=== PATIENT | male | born 1985 | race Caucasian/White ===

== ENCOUNTER 2017-08-29 18:21 | Inpatient (IN) | payer OTHER ==
--- NOTE | 2017-08-29 20:40 | HP ---
COWS - Scale Resting Pulse: 1= [place] 81-100 Sweatin=Flushed/Facial Moisture Restless Observation: 5= Unable to Sit Still Pupil Size: 1= Pupils >than Normal Bone or Joint Aches: 4=Acute Joint/Muscle Pain Runny Nose/ Eye Tearin= Nasal Congestion GI Upset > 30mins: 3= Vomiting/Diarrhea Tremor Observation: 4= Gross Tremor/Twitching Yawning Observation: 1= 1-2x During Session Anxiety or Irritability: 4=Extreme Anxiety Goose Flesh Skin: 0=Smooth Skin COWS Score: 26 CIWA Score - CIWA Score Nausea/Vomitin Muscle Tremors: 4-Moderate,w/Arms Extend Anxiety: 5 Agitation: 5 Paroxysmal Sweats: 3 Orientation: 0-Oriented Tacttile Disturbances: 0-None Auditory Disturbances: 0-None Visual Disturbances: 0-None Headache: 3-Moderate CIWA-Ar Total Score: 23 Admission LOCATED [facility]IN [facility] Chief Complaint: C/O WITHDRAWAL SX'S FROM ALCOHOL AND HEROIN . SEEKING DETOX TXMENT Allergies/Adverse Reactions: Allergies Allergy/AdvReac Type Severity Reaction Status Date / Time Penicillins Allergy Intermediate Hives Verified 12/05/11 23:41 Sulfa (Sulfonamide Allergy Intermediate Hives Verified 12/05/11 23:42 Antibiotics) [Sulfa(Sulfonamide Antibiotics)] History of Present Illness: 32 Y.O. MALE WITH LONG HX/O OPIOID AND ALCOHOL DEPENDENCE HERE FOR DETOX TXMENT. CLIENT REPORTS COMPLETING A 6 DAY DETOX AT [facility] 10 DAYS AGO. HE REPORTS HE HAS SINCE BEEN USING HEROIN AND ALCOHOL SINCE DISCHARGE DUE TO NOT MEETING CRITERIA FOR REHAB SERVICES 2/2 RESTRICITIONS TO A HOSPITAL SETTING. HE IS PRESENTLY IN MODERATE WITHDRAWAL UTOX + FOR OPIATES . WILL ADMIT TO DETOX. CLIENT IS SEEKING REHAB SERVICES POST DETOX. HE IS SELF REFERRED. HE IS PRESENTLY ON [employer]AL PROBATION. REPORTS A CLEAN TIME OF 3 YEARS RELAPSING 6 MONTHS AGO Exam Limitations: No Limitations - Ebola screening Have you traveled outside of the country in the last 21 days: No Have you had contact with anyone from an Ebola affected area: No Have you been sick,other than usual withdrawal symptoms: No Do you have a fever: No - Review of Systems Constitutional: Chills, Loss of Appetite, Malaise, Night Sweats, Changes in sleep, Unexplained wgt Loss EENT: reports: Nose Congestion, Other (GLASSES) Respiratory: reports: No Symptoms reported Cardiac: reports: No Symptoms Reported GI: reports: Nausea, Poor Appetite, Vomiting, Abdominal cramping : reports: No Symptoms Reported Musculoskeletal: reports: Joint Pain Integumentary: reports: No Symptoms Reported Neuro: reports: No Symptoms reported Endocrine: reports: No Symptoms Reported Hematology: reports: No Symptoms Reported Psychiatric: reports: Anxious, Depressed (DENIES SI/HI), other (BIPOLAR) Other Systems: Reviewed and Negative Patient History - Patient Medical History Hx Anemia: No Hx Asthma: No Hx Chronic Obstructive Pulmonary Disease (COPD): No Hx Cancer: No Hx Cardiac Disorders: No Hx Congestive Heart Failure: No Hx Hypertension: No Hx Hypercholesterolemia: No Hx Pacemaker: No HX Cerebrovascular Accident: No Hx Seizures: No Hx Dementia: No Hx Diabetes: No Hx Gastrointestinal Disorders: No Hx Liver Disease: No Hx Genitourinary Disorders: No Hx Sexually Transmitted Disorders: No Hx Renal Disease (ESRD): No Hx Thyroid Disease: No Hx Human Immunodeficiency Virus (HIV): No Hx Hepatitis C: No Hx Depression: Yes (NO MED MGMT) Hx Suicide Attempt: No Hx Bipolar Disorder: Yes ( HALDOL 2.5 MG BID) Hx Schizophrenia: No Other Medical History: INSOMNIA TRAZADONE 200MG Q HS; REMERON 7.5 MG PO QHS - Patient Surgical History Past Surgical History: Yes Hx Neurologic Surgery: No Hx Cataract Extraction: No Hx Cardiac Surgery: No Hx Lung Surgery: No Hx Breast Surgery: No Hx Breast Biopsy: No Hx Abdominal Surgery: No Hx Appendectomy: No Hx Cholecystectomy: No Hx Genitourinary Surgery: No Hx Section: No Hx Orthopedic Surgery: Yes (L HAND FX WITH ORIF AND HARDWARE) Anesthesia Reaction: Yes - PPD History Previous Implant?: Yes Documented Results: Positive w/o proof Implanted On Prior [facility] Admission?: No PPD to be Administered?: No - Smoking Cessation Smoking history: Current every day smoker Aproximately how many cigarettes per day: 20 Cigars Per Day: 0 Hx Chewing Tobacco Use: No Initiated information on smoking cessation: Yes 'Breaking Loose' booklet given: 08/29/17 - Substance & Tx. History Hx Alcohol Use: Yes Hx Substance Use: Yes Substance Use Type: Alcohol, Cocaine, Heroin Hx Substance Use Treatment: Yes ([facility]) - Substances Abused HEROIN Route: Inhalation Frequency: Daily Amount used: 10 BAGS Age of first use: 20 Date of Last Use: 08/28/17 VODKA Route: Oral Frequency: Daily Amount used: 2 750 ML Age of first use: 16 Date of Last Use: 08/29/17 COCAINE Route: Inhalation Frequency: 1-2 times per week Amount used: 1/2 GRAM Age of first use: 20 Date of Last Use: 08/28/17 Family Disease History - Family Disease History Family History: Denies Admission Physical Exam [facility] - Physical General Appearance: Yes: Moderate Distress, Alcohol on Breath, Tremorous, Sweating, Anxious HEENTM: Yes: EOMI, Normocephalic, Normal Voice, YANELY, Pharynx Normal, Nasal Congestion Respiratory: Yes: Chest Non-Tender, Lungs Clear, Normal Breath Sounds, No Respiratory Distress, No Accessory Muscle Use Neck: Yes: No masses,lesions,Nodules, Supple, Trachea in good position Breast: Yes: Breast Exam Deferred Cardiology: Yes: Regular Rhythm, S1, S2, Tachycardia Abdominal: Yes: Normal Bowel Sounds, Non Tender, Flat, Soft Genitourinary: Yes: Within Normal Limits Back: Yes: Normal Inspection Musculoskeletal: Yes: full range of Motion, Gait Steady Extremities: Yes: Normal Capillary Refill, Normal Range of Motion, Non-Tender, Tremors Neurological: Yes: health information internship II-XII NML intact Integumentary: Yes: Warm, Diaphoresis, Moist, Other (FLUSHED FACE) Lymphatic: Yes: Within Normal Limits - Diagnostic (1) Opioid dependence with withdrawal Current Visit: Yes Status: Chronic (2) Alcohol dependence with uncomplicated withdrawal Current Visit: Yes Status: Chronic (3) Cocaine dependence, uncomplicated Current Visit: Yes Status: Chronic (4) Nicotine dependence Current Visit: Yes Status: Chronic Qualifiers: Nicotine product type: cigarettes Substance use status: uncomplicated Qualified Code(s): F17.210 - Nicotine dependence, cigarettes, uncomplicated (5) History of positive PPD Current Visit: Yes Status: Chronic Cleared for Admission [facility] - Detox or Rehab [facility] Level of Care: Medically Managed Detox Regimen/Protocol: Methadone/Librium [facility] Breath Alcohol Content Breath Alcohol Content: 0
[2017-08-29] MEDS ORDERED: MAG HYDROX/AL HYDROX/SIMETH 30 ML UNIT-DOSE CUP PO PRN (20:55)
[2017-08-29] MEDS ORDERED: P-EPHED 60MG/TRIPROLIDI 2.5MG TABLET PO PRN (20:55)
[2017-08-29] MEDS ORDERED: LOPERAMIDE HCL 2 MG CAPSULE PO PRN (20:55)
[2017-08-29] MEDS ORDERED: MAGNESIUM CITRATE 300 ML BOTTLE PO PRN (20:55)
[2017-08-29] MEDS ORDERED: MENTHOL/PHENOL 1 EACH UD MM PRN (20:55)
[2017-08-29] MEDS ORDERED: MAGNESIUM HYDROX 2400MG/30ML ORAL SUSPENSION 30 ML CUP PO PRN (20:55)
[2017-08-29] MEDS ORDERED: METHADONE HCL 10 MG TABLET (FOR DETOX USE ONLY) PO ONE ×2 (20:55→23:00)
[2017-08-29] MEDS ORDERED: guaiFENesin/D-METHORPHAN HB 10 ML UNIT-DOSE CUPS PO PRN (20:55)
[2017-08-29 21:31] VITALS: BMI 28.8
[2017-08-29] MEDS ORDERED: METHADONE HCL 10 MG TABLET (FOR DETOX USE ONLY) ONE (23:23)
[2017-08-29] MEDS: chlordiazePOXIDE HCL 25 MG CAPSULE PO SCH (23:24)
[2017-08-29] MEDS: THIAMINE HCL 100 MG TABLET (FP) PO SCH (23:24)
[2017-08-29] MEDS: NICOTINE POLACRILEX 4 MG GUM BC PRN (23:26)
[2017-08-29 23:40] LABS: URINE APPEARANCE CLEAR; URINE BILIRUBIN NEGATIVE (NEGATIVE); URINE BLOOD NEGATIVE (NEGATIVE); URINE COLOR LTYELLOW; URINE GLUCOSE (UA) NEGATIVE (NEGATIVE); URINE KETONE NEGATIVE (NEGATIVE); URINE LEUK ESTERASE NEGATIVE (NEGATIVE); URINE NITRITE NEGATIVE (NEGATIVE); URINE PROTEIN NEGATIVE (NEGATIVE)
[2017-08-30] MEDS: chlordiazePOXIDE HCL 25 MG CAPSULE PO PRN ×2 (01:04→12:54)
[2017-08-30] MEDS: IBUPROFEN 400 MG TABLET (FP) PO PRN ×3 (01:04→19:19)
[2017-08-30] MEDS: chlordiazePOXIDE HCL 25 MG CAPSULE PO SCH ×4 (05:52→22:16)
--- NOTE | 2017-08-30 08:48 | EKG ---
Test Reason : Blood Pressure : / mmHG Vent. Rate : 064 BPM Atrial Rate : 064 BPM P-R Int : 130 ms QRS Dur : 092 ms QT Int : 398 ms P-R-T Axes : 033 048 037 degrees QTc Int : 410 ms BASELINE ARTIFACT SINUS RHYTHM OTHERWISE NORMAL ECG NO PREVIOUS ECGS AVAILABLE Confirmed by Jah Gramajo ([id number]) on 08/30/2017 8:48:22 AM Referred By: Maicol Ramos Confirmed By:Jah Gramaoj
[2017-08-30] MEDS ORDERED: METHADONE HCL 10 MG TABLET (FOR DETOX USE ONLY) PO SCH (10:00)
[2017-08-30 10:20] LABS: MCH 30.5 pg (25.7-33.7); MCHC 34.2 g/dl (32.0-35.9); MEAN CELL VOLUME 89.1 fl (80-96); MEAN PLT VOLUME 7.6 fl (7.5-11.1); PLATELET COUNT 251 K/MM3 (134-434); RBC 4.27 M/mm3 (4.00-5.60)
[2017-08-30 10:28] LABS: ALBUMIN 3.5 g/dl (3.4-5.0); ANION GAP 7 (8-16); BLOOD UREA NITROGEN 11 mg/dL (7-18); CALCIUM 8.7 mg/dL (8.5-10.1); CHLORIDE 104 mmol/L (98-107); CO2 29 mmol/L (21-32); GLUCOSE,RANDOM 75 mg/dL (74-106); POTASSIUM 3.8 mmol/L (3.5-5.1); SGOT/AST 11 U/L (15-37); SGPT/ALT 17 U/L (12-78); SODIUM 140 mmol/L (136-145)
[2017-08-30 10:29] LABS: ALK PHOS 43 U/L (45-117); BILIRUBIN,TOTAL 0.6 mg/dL (0.2-1.0); TOT PROT 6.2 g/dl (6.4-8.2)
--- NOTE | 2017-08-30 10:37 | CONSULT ---
[facility] Psychiatric Consult - Data Date of interview: 08/30/17 Admission source: [facility] Identifying data: This is 32 years old male with no psychiatric hospitalization history intoxicated with: Cocaine, Alcohol Opiuoids, Xanax Substance Abuse History: - Smoking Cessation. Smoking history: Current every day smoker. Aproximately how many cigarettes per day: 20. Cigars Per Day: 0. Hx Chewing Tobacco Use: No. Initiated information on smoking cessation: Yes. ' Breaking Loose' booklet given: 08/29/17. - Substance & Tx. History. Hx Alcohol Use: Yes. Hx Substance Use: Yes. Substance Use Type: Alcohol, Cocaine , Heroin. Hx Substance Use Treatment: Yes ([facility] - Substances Abused. HEROIN. Route: Inhalation. Frequency: Daily. Amount used: 10 BAGS. Age of first use: 20. Date of Last Use: 08/28/17. VODKA. Route: Oral. Frequency: Daily. Amount used: 2 750 ML. Age of first use: 16. Date of Last Use: 08/29/17. COCAINE. Route: Inhalation. Frequency: 1-2 times per week. Amount used: 1/2 GRAM. Age of first use: 20. Date of Last Use : 08/28/17 Medical History: PPD + history Psychiatric History: Patoent reports history of Bipolar Diasorder with no psychiatric hospitalization history, reports taking prior to admission: Remeron 7.5mg po qhs. TYrazodone 200mg po qhs. As per julianne patipayamnt has been in addition on:'. Haldol 2.5mg po bid. Cogentin 1mg poqd. Refusing to start above medications Physical/Sexual Abuse/Trauma History: Denies Additional Comment: Remeron 7.5mg po qhs. TYrazodone 200mg po qhs Mental Status Exam - Mental Status Exam Alert and Oriented to: Person Cognitive Function: Fair Patient Appearance: Unkempt Mood: Sad Affect: Flat Patient Behavior: Sedated Speech Pattern: Delayed Voice Loudness: Mildly Soft/Quiet Thought Process: Goal Oriented Thought Disorder: Being Controlled Hallucinations: Denies Suicidal Ideation: Denies Homicidal Ideation: Denies Insight/Judgement: Fair Sleep: Difficulty falling asleep Appetite: Weight loss Muscle strength/Tone: Mild Hypotonicity Gait/Station: Shuffling Additional Comments: Remeron 7.5mg po qhs. TYrazodone 200mg po qhs Psychiatric Findings - Problem List ([place] 1, 2,3) (1) Bipolar disorder Current Visit: Yes Status: Suspected (2) Alcohol dependence with uncomplicated withdrawal Current Visit: Yes Status: Chronic (3) Cocaine dependence, uncomplicated Current Visit: Yes Status: Chronic (4) Nicotine dependence Current Visit: Yes Status: Chronic Qualifiers: Nicotine product type: cigarettes Substance use status: uncomplicated Qualified Code(s): F17.210 - Nicotine dependence, cigarettes, uncomplicated (5) Opioid dependence with withdrawal Current Visit: Yes Status: Chronic - Initial Treatment Plan Initial Treatment Plan: Remeron 7.5mg po qhs. TYrazodone 200mg po qhs
[2017-08-30] MEDS: PRENATAL VITAMINS W/ FOLIC ACID TABLET (FP) PO SCH (11:08)
[2017-08-30] MEDS: NICOTINE POLACRILEX 4 MG GUM BC PRN ×3 (11:10→22:16)
--- NOTE | 2017-08-30 14:41 | PN ---
S COWS - Scale Resting Pulse: 1= [place] 81-100 Sweatin= Chills/Flushing Restless Observation: 3= Extraneous Movement Pupil Size: 1= Pupils >than Normal Bone or Joint Aches: 2= Severe Diffuse Aches Runny Nose/ Eye Tearin= Nasal Congestion GI Upset > 30mins: 1= Stomach Cramp Tremor Observation of Outstretched Hands: 2= Slight Tremor Visible Yawning Observation: 0= None Anxiety or Irritability: 2=Irritable/Anxious Goose Flesh Skin: 0=Smooth Skin COWS Score: 14 [facility] Progress Note (SOAP) Objective: 08/30/17 14:40 Vital Signs - 24 hr 08/29/17 08/29/17 08/30/17 19:06 23:12 06:26 Temperature 99.4 F 98.1 F 97.7 F Pulse Rate 89 71 58 L Respiratory 19 18 16 Rate Blood Pressure 104/72 127/91 104/58 08/30/17 08/30/17 09:22 14:36 Temperature 97.2 F L 98.1 F Pulse Rate 58 L 65 Respiratory 18 20 Rate Blood Pressure 109/66 130/67 Laboratory Tests 08/29/17 08/30/17 08/30/17 23:20 07:00 07:00 WBC 6.0 D RBC 4.27 Hgb 13.0 Hct 38.0 MCV 89.1 MCH 30.5 MCHC 34.2 RDW 13.0 Plt Count 251 MPV 7.6 Sodium 140 Potassium 3.8 Chloride 104 Carbon Dioxide 29 Anion Gap 7 L BUN 11 Creatinine 1.0 Creat Clearance w eGFR > 60 Random Glucose 75 Calcium 8.7 Total Bilirubin 0.6 D AST 11 L D ALT 17 D Alkaline Phosphatase 43 L Total Protein 6.2 L Albumin 3.5 Urine Color Ltyellow Urine Appearance Clear Urine pH 6.0 Ur Specific [place] 1.013 Urine Protein Negative Urine Glucose (UA) Negative Urine Ketones Negative Urine Blood Negative Urine Nitrite Negative Urine Bilirubin Negative Urine Urobilinogen 2.0 Ur Leukocyte Esterase Negative RPR Titer 08/30/17 07:00 WBC RBC Hgb Hct MCV MCH MCHC RDW Plt Count MPV Sodium Potassium Chloride Carbon Dioxide Anion Gap BUN Creatinine Creat Clearance w eGFR Random Glucose Calcium Total Bilirubin AST ALT Alkaline Phosphatase Total Protein Albumin Urine Color Urine Appearance Urine pH Ur Specific [place] Urine Protein Urine Glucose (UA) Urine Ketones Urine Blood Urine Nitrite Urine Bilirubin Urine Urobilinogen Ur Leukocyte Esterase RPR Titer Nonreactive remainder pending Assessment: 08/30/17 14:41 opiate withdrawal Plan: cont protocol
[2017-08-30] MEDS: THIAMINE HCL 100 MG TABLET (FP) PO SCH (22:15)
[2017-08-30] MEDS: ACETAMINOPHEN 325 MG TABLET (FP) PO PRN (22:16)
[2017-08-31] MEDS: chlordiazePOXIDE HCL 25 MG CAPSULE PO SCH ×3 (05:58→17:47)
[2017-08-31] MEDS: NICOTINE POLACRILEX 4 MG GUM BC PRN ×2 (05:59→17:47)
[2017-08-31] MEDS: PRENATAL VITAMINS W/ FOLIC ACID TABLET (FP) PO SCH (11:02)
[2017-08-31] MEDS: METHADONE HCL 5 MG TABLET (FOR DETOX USE ONLY) PO SCH (11:03)
--- NOTE | 2017-08-31 12:03 | PN ---
S COWS - Scale Resting Pulse: 0= [place] 80 or Below Sweatin= Chills/Flushing Restless Observation: 1= Difficult to Sit Still Pupil Size: 1= Pupils >than Normal Bone or Joint Aches: 2= Severe Diffuse Aches Runny Nose/ Eye Tearin= Nasal Congestion GI Upset > 30mins: 2= Nausea/Diarrhea Tremor Observation of Outstretched Hands: 2= Slight Tremor Visible Yawning Observation: 0= None Anxiety or Irritability: 2=Irritable/Anxious Goose Flesh Skin: 0=Smooth Skin COWS Score: 12 [facility] Progress Note (SOAP) Objective: 08/31/17 12:02 Laboratory Tests 08/29/17 08/29/17 08/30/17 07:00 23:20 07:00 WBC 6.0 D RBC 4.27 Hgb 13.0 Hct 38.0 MCV 89.1 MCH 30.5 MCHC 34.2 RDW 13.0 Plt Count 251 MPV 7.6 Sodium Potassium Chloride Carbon Dioxide Anion Gap BUN Creatinine Creat Clearance w eGFR Random Glucose Calcium Total Bilirubin AST ALT Alkaline Phosphatase Total Protein Albumin Urine Color Ltyellow Urine Appearance Clear Urine pH 6.0 Ur Specific [place] 1.013 Urine Protein Negative Urine Glucose (UA) Negative Urine Ketones Negative Urine Blood Negative Urine Nitrite Negative Urine Bilirubin Negative Urine Urobilinogen 2.0 Ur Leukocyte Esterase Negative RPR Titer Hepatitis C Antibody <0.1 08/30/17 08/30/17 07:00 07:00 WBC RBC Hgb Hct MCV MCH MCHC RDW Plt Count MPV Sodium 140 Potassium 3.8 Chloride 104 Carbon Dioxide 29 Anion Gap 7 L BUN 11 Creatinine 1.0 Creat Clearance w eGFR > 60 Random Glucose 75 Calcium 8.7 Total Bilirubin 0.6 D AST 11 L D ALT 17 D Alkaline Phosphatase 43 L Total Protein 6.2 L Albumin 3.5 Urine Color Urine Appearance Urine pH Ur Specific [place] Urine Protein Urine Glucose (UA) Urine Ketones Urine Blood Urine Nitrite Urine Bilirubin Urine Urobilinogen Ur Leukocyte Esterase RPR Titer Nonreactive Hepatitis C Antibody Vital Signs - 24 hr 08/30/17 08/30/17 08/30/17 14:36 17:59 23:03 Temperature 98.1 F 97.7 F 98.2 F Pulse Rate 65 54 L 58 L Respiratory 20 18 18 Rate Blood Pressure 130/67 100/61 131/72 08/31/17 08/31/17 08/31/17 00:30 03:30 06:00 Temperature 97.7 F Pulse Rate 54 L Respiratory 18 18 18 Rate Blood Pressure 129/69 08/31/17 09:32 Temperature 98.2 F Pulse Rate 60 Respiratory 16 Rate Blood Pressure 126/82 Assessment: 08/31/17 12:03 WITHDRAWAL Plan: CONTINUE DETOX PROTOCOL
[2017-08-31] MEDS: chlordiazePOXIDE HCL 25 MG CAPSULE PO PRN (13:45)
[2017-08-31] MEDS: IBUPROFEN 400 MG TABLET (FP) PO PRN (17:45)
--- NOTE | 2017-08-31 18:06 | PN ---
[facility] Progress Note Note: Psychiatric nurse practitioner: Research Consultant informed by RN of patient requesting his evening medications. Psychiatric consultation responded by Dr. Richter on 08/30/2017. Dr. Richter's note appreciated and acknowledged. Research Consultant to order patient's evening medications of Trazodone 150mg and Mirtzapine 7.5mg . Will continue to monitor.
[2017-08-31] MEDS: traZODone HCL 50 MG TABLET (FP) PO SCH (22:11)
[2017-08-31] MEDS: chlordiazePOXIDE 5 MG CAPSULE PO SCH (22:12)
[2017-08-31] MEDS: THIAMINE HCL 100 MG TABLET (FP) PO SCH (22:12)
[2017-08-31] MEDS: ACETAMINOPHEN 325 MG TABLET (FP) PO PRN (22:12)
[2017-08-31] MEDS: MIRTAZAPINE 15 MG TABLET (FP) PO SCH (22:15)
[2017-08-31] MEDS ORDERED: ACETAMINOPHEN/CAFFEINE/BUTALBITAL 1 TAB PO ONE (23:15)
[2017-09-01] MEDS: chlordiazePOXIDE 5 MG CAPSULE PO SCH ×3 (05:52→17:52)
[2017-09-01] MEDS: PRENATAL VITAMINS W/ FOLIC ACID TABLET (FP) PO SCH (10:58)
[2017-09-01] MEDS: METHADONE HCL 5 MG TABLET (FOR DETOX USE ONLY) PO SCH (10:59)
[2017-09-01] MEDS: IBUPROFEN 400 MG TABLET (FP) PO PRN ×2 (11:00→17:55)
[2017-09-01] MEDS: NICOTINE POLACRILEX 4 MG GUM BC PRN ×3 (11:00→23:13)
[2017-09-01] MEDS: chlordiazePOXIDE HCL 25 MG CAPSULE PO PRN (15:03)
--- NOTE | 2017-09-01 15:31 | PN ---
[facility] Progress Note (SOAP) Subjective: IS, headache , ,jt pains Objective: 09/01/17 15:29 Vital Signs Temperature 96.8 F L 09/01/17 13:16 Pulse Rate 54 L 09/01/17 13:16 Respiratory Rate 18 09/01/17 13:16 Blood Pressure 108/75 09/01/17 13:16 O2 Sat by Pulse Oximetry (%) pt aox3 in nad ambulating Assessment: 09/01/17 15:30 withdrawal sx's Plan: cont. detox increase fluids naprosyn 500mg bid
[2017-09-01] MEDS: traZODone HCL 50 MG TABLET (FP) PO SCH (22:11)
[2017-09-01] MEDS: THIAMINE HCL 100 MG TABLET (FP) PO SCH (22:11)
[2017-09-01] MEDS: NAPROXEN 500 MG TABLET (FP) PO SCH (22:12)
[2017-09-01] MEDS: MIRTAZAPINE 15 MG TABLET (FP) PO SCH (22:12)
[2017-09-01] MEDS: chlordiazePOXIDE HCL 10 MG CAPSULE PO SCH (22:12)
[2017-09-02] MEDS: chlordiazePOXIDE HCL 10 MG CAPSULE PO SCH ×3 (05:33→18:04)
[2017-09-02] MEDS ORDERED: METHADONE HCL 10 MG TABLET (FOR DETOX USE ONLY) PO SCH (10:00)
[2017-09-02] MEDS: PRENATAL VITAMINS W/ FOLIC ACID TABLET (FP) PO SCH (10:52)
[2017-09-02] MEDS: NAPROXEN 500 MG TABLET (FP) PO SCH ×2 (10:52→22:34)
[2017-09-02] MEDS: NICOTINE POLACRILEX 4 MG GUM BC PRN ×2 (10:54→18:05)
--- NOTE | 2017-09-02 13:05 | PN ---
[facility] Progress Note (SOAP) Subjective: general body ache joints ache mild tremor sleep better alert oriented x 3 Objective: 09/02/17 13:05 Vital Signs Temperature 97.7 F 09/02/17 09:41 Pulse Rate 64 09/02/17 09:41 Respiratory Rate 20 09/02/17 09:41 Blood Pressure 120/64 09/02/17 09:41 O2 Sat by Pulse Oximetry (%) Laboratory Last Values WBC 6.0 K/mm3 (4.0-10.0) D 08/30/17 07:00 RBC 4.27 M/mm3 (4.00-5.60) 08/30/17 07:00 Hgb 13.0 GM/dL (11.7-16.9) 08/30/17 07:00 Hct 38.0 % (35.4-49) 08/30/17 07:00 MCV 89.1 fl (80-96) 08/30/17 07:00 MCH 30.5 pg (25.7-33.7) 08/30/17 07:00 MCHC 34.2 g/dl (32.0-35.9) 08/30/17 07:00 RDW 13.0 % (11.9-15.9) 08/30/17 07:00 Plt Count 251 K/MM3 (134-434) 08/30/17 07:00 MPV 7.6 fl (7.5-11.1) 08/30/17 07:00 Sodium 140 mmol/L (136-145) 08/30/17 07:00 Potassium 3.8 mmol/L (3.5-5.1) 08/30/17 07:00 Chloride 104 mmol/L (98-107) 08/30/17 07:00 Carbon Dioxide 29 mmol/L (21-32) 08/30/17 07:00 Anion Gap 7 (8-16) L 08/30/17 07:00 BUN 11 mg/dL (7-18) 08/30/17 07:00 Creatinine 1.0 mg/dL (0.7-1.3) 08/30/17 07:00 Creat Clearance w eGFR > 60 (>60) 08/30/17 07:00 Random Glucose 75 mg/dL (74-106) 08/30/17 07:00 Calcium 8.7 mg/dL (8.5-10.1) 08/30/17 07:00 Total Bilirubin 0.6 mg/dL (0.2-1.0) D 08/30/17 07:00 AST 11 U/L (15-37) L D 08/30/17 07:00 ALT 17 U/L (12-78) D 08/30/17 07:00 Alkaline Phosphatase 43 U/L (45-117) L 08/30/17 07:00 Total Protein 6.2 g/dl (6.4-8.2) L 08/30/17 07:00 Albumin 3.5 g/dl (3.4-5.0) 08/30/17 07:00 Urine Color Ltyellow 08/29/17 23:20 Urine Appearance Clear 08/29/17 23:20 Urine pH 6.0 (5.0-8.0) 08/29/17 23:20 Ur Specific [place] 1.013 (1.001-1.035) 08/29/17 23:20 Urine Protein Negative (NEGATIVE) 08/29/17 23:20 Urine Glucose (UA) Negative (NEGATIVE) 08/29/17 23:20 Urine Ketones Negative (NEGATIVE) 08/29/17 23:20 Urine Blood Negative (NEGATIVE) 08/29/17 23:20 Urine Nitrite Negative (NEGATIVE) 08/29/17 23:20 Urine Bilirubin Negative (NEGATIVE) 08/29/17 23:20 Urine Urobilinogen 2.0 mg/dL (0.2-1.0) 08/29/17 23:20 Ur Leukocyte Esterase Negative (NEGATIVE) 08/29/17 23:20 RPR Titer Nonreactive (NONREACTIVE) 08/30/17 07:00 Hepatitis C Antibody <0.1 s/co ratio (0.0-0.9) 08/29/17 07:00 lab noted Assessment: 09/02/17 13:06 withdrawal sx Plan: continue detox
[2017-09-02] MEDS: traZODone HCL 50 MG TABLET (FP) PO SCH (22:34)
[2017-09-02] MEDS: THIAMINE HCL 100 MG TABLET (FP) PO SCH (22:34)
[2017-09-02] MEDS: MIRTAZAPINE 15 MG TABLET (FP) PO SCH (22:34)
[2017-09-03] MEDS ORDERED: METHADONE HCL 5 MG TABLET (FOR DETOX USE ONLY) PO SCH (06:00)
[2017-09-03 07:09] VITALS: TEMP 97.7
--- NOTE | 2017-09-03 08:24 | DS ---
[facility] Detox Discharge Summary Admission Date: 08/29/17 Discharge Date: 09/03/17 - History Present History: Alcohol Dependence, Cocaine Dependence, Opioid Dependence Additional Comments: CXR neg for active tb Pertinent Past History: anxiety, depression and insomnia nicotine dependence, PPD+ - Physical Exam Results Vital Signs: Vital Signs Temperature 97.7 F 09/03/17 07:07 Pulse Rate 51 L 09/03/17 07:07 Respiratory Rate 16 09/03/17 07:07 Blood Pressure 109/61 09/03/17 07:07 O2 Sat by Pulse Oximetry (%) Laboratory Tests 08/29/17 08/29/17 08/30/17 07:00 23:20 07:00 WBC 6.0 D RBC 4.27 Hgb 13.0 Hct 38.0 MCV 89.1 MCH 30.5 MCHC 34.2 RDW 13.0 Plt Count 251 MPV 7.6 Sodium Potassium Chloride Carbon Dioxide Anion Gap BUN Creatinine Creat Clearance w eGFR Random Glucose Calcium Total Bilirubin AST ALT Alkaline Phosphatase Total Protein Albumin Urine Color Ltyellow Urine Appearance Clear Urine pH 6.0 Ur Specific [place] 1.013 Urine Protein Negative Urine Glucose (UA) Negative Urine Ketones Negative Urine Blood Negative Urine Nitrite Negative Urine Bilirubin Negative Urine Urobilinogen 2.0 Ur Leukocyte Esterase Negative RPR Titer Hepatitis C Antibody <0.1 08/30/17 08/30/17 07:00 07:00 WBC RBC Hgb Hct MCV MCH MCHC RDW Plt Count MPV Sodium 140 Potassium 3.8 Chloride 104 Carbon Dioxide 29 Anion Gap 7 L BUN 11 Creatinine 1.0 Creat Clearance w eGFR > 60 Random Glucose 75 Calcium 8.7 Total Bilirubin 0.6 D AST 11 L D ALT 17 D Alkaline Phosphatase 43 L Total Protein 6.2 L Albumin 3.5 Urine Color Urine Appearance Urine pH Ur Specific [place] Urine Protein Urine Glucose (UA) Urine Ketones Urine Blood Urine Nitrite Urine Bilirubin Urine Urobilinogen Ur Leukocyte Esterase RPR Titer Nonreactive Hepatitis C Antibody Pertinent Admission Physical Exam Findings: withdrawal symptoms - Treatment Hospital Course: Detox Protocol Followed, Detoxed Safely, Responded well, Discharged Condition Good, Rehab Referral Accepted Patient has Accepted a Rehab Referral to: Yes - Medication Discharge Medications: Ambulatory Orders Benztropine Mesylate [Cogentin -] 1 mg PO DAILY 08/29/17 Haloperidol [Haldol -] 2.5 mg PO BID 08/29/17 Mirtazapine 7.5 mg PO HS 08/29/17 Trazodone HCl 200 mg PO HS 08/29/17 - Diagnosis (1) Opioid dependence with withdrawal Current Visit: Yes Status: Chronic (2) Alcohol dependence with uncomplicated withdrawal Current Visit: Yes Status: Chronic (3) Cocaine dependence, uncomplicated Current Visit: Yes Status: Chronic (4) Nicotine dependence Current Visit: Yes Status: Chronic Qualifiers: Nicotine product type: cigarettes Substance use status: uncomplicated Qualified Code(s): F17.210 - Nicotine dependence, cigarettes, uncomplicated (5) History of positive PPD Current Visit: Yes Status: Chronic (6) Bipolar disorder Current Visit: Yes Status: Suspected - AMA Did Patient Leave Against Medical Advice: No
[2017-09-03 09:34] VITALS: BP 136/64; PULSE 54
[2017-09-03] MEDS: NAPROXEN 500 MG TABLET (FP) PO SCH (10:05)
[2017-09-03] MEDS: PRENATAL VITAMINS W/ FOLIC ACID TABLET (FP) PO SCH (10:05)
[2017-09-03] MEDS: NICOTINE POLACRILEX 4 MG GUM BC PRN (10:06)
== END 2017-09-03 13:58 | disposition other institution (70) | DRG 773 ==
LOC: YASAS 18:21 → Y6N 20:56
PROVIDERS: ADMIT Internal Medicine; ATTEND Internal Medicine
PROC: HZ2ZZZZ Detoxification Services for Substance Abuse Treatment (ICD-10-PCS; principal; 2017-08-29)
DX: F11.23 Opioid dependence with withdrawal (principal); F10.230 Alcohol dependence with withdrawal, uncomplicated; F14.20 Cocaine dependence, uncomplicated; F17.210 Nicotine dependence, cigarettes, uncomplicated; F41.8 Other specified anxiety disorders; F31.9 Bipolar disorder, unspecified; G47.00 Insomnia, unspecified; R76.11 Nonspecific reaction to tuberculin skin test without active tuberculosis
CPT/HCPCS: 36415; 71046-TC; 80053; 81003; 85027; 86593; 86803; 93005; 93010

== ENCOUNTER 2017-09-03 14:23 | Inpatient (IN) | payer OTHER ==
[2017-09-03 15:35] VITALS: BMI 29.4
[2017-09-03] MEDS ORDERED: guaiFENesin/D-METHORPHAN HB 10 ML UNIT-DOSE CUPS PO PRN (16:15)
[2017-09-03] MEDS ORDERED: MAGNESIUM CITRATE 300 ML BOTTLE PO PRN (16:15)
[2017-09-03] MEDS ORDERED: MAGNESIUM HYDROX 2400MG/30ML ORAL SUSPENSION 30 ML CUP PO PRN (16:15)
[2017-09-03] MEDS ORDERED: MAG HYDROX/AL HYDROX/SIMETH 30 ML UNIT-DOSE CUP PO PRN (16:15)
[2017-09-03] MEDS ORDERED: hydrOXYzine PAMOATE 50 MG CAPSULE (FP) PO PRN (16:15)
[2017-09-03] MEDS ORDERED: MENTHOL/PHENOL 1 EACH UD MM PRN (16:15)
[2017-09-03] MEDS ORDERED: LOPERAMIDE HCL 2 MG CAPSULE PO PRN (16:15)
--- NOTE | 2017-09-03 16:15 | HP ---
[facility] Rehab Assess/Revision - Admission History Admitted to Rehab from: [facility] Date of Admission to Rehab: 09/03/17 - Vital signs Vital Signs: Vital Signs Period Temp Pulse Resp BP Sys/Tello Pulse Ox Last 24 Hr 98.6 F 62 20 119/76 - Findings Detox History & Physical reviewed: Yes Concur with findings: Yes Inpatient Rehab Admission - Initial Determination Are CD services needed?: Yes Free of communicable disease: Yes Not in need of hospitalization: Yes - Rehab Admission Criteria Lacks judgement: Yes Patient is meeting Inpatient Rehab admission criteria:: Yes
[2017-09-03] MEDS: NICOTINE POLACRILEX 2 MG GUM BUC PRN ×2 (17:26→21:16)
[2017-09-03] MEDS: ACETAMINOPHEN 325 MG TABLET (FP) PO PRN (17:29)
[2017-09-03] MEDS: traZODone HCL 100 MG TABLET (FP) PO SCH (21:15)
[2017-09-03] MEDS: HALOPERIDOL 5 MG TABLET (FP) PO SCH (21:16)
[2017-09-03] MEDS: MIRTAZAPINE 15 MG TABLET (FP) PO SCH (21:16)
[2017-09-03] MEDS: THIAMINE HCL 100 MG TABLET (FP) PO SCH (21:16)
[2017-09-03] MEDS ORDERED: HALOPERIDOL PO SCH (22:00)
[2017-09-04] MEDS: NICOTINE POLACRILEX 2 MG GUM BUC PRN ×4 (08:18→21:35)
[2017-09-04] MEDS: NICOTINE 14 MG/24 HOURS TOPICAL PATCH TD SCH (09:49)
[2017-09-04] MEDS: HALOPERIDOL 5 MG TABLET (FP) PO SCH ×2 (09:49→22:35)
[2017-09-04] MEDS: BENZTROPINE MESYLATE 1 MG TABLET (FP) PO SCH (09:49)
[2017-09-04] MEDS: PRENATAL VITAMINS W/ FOLIC ACID TABLET (FP) PO SCH (09:49)
[2017-09-04] MEDS: traZODone HCL 100 MG TABLET (FP) PO SCH (21:33)
[2017-09-04] MEDS: THIAMINE HCL 100 MG TABLET (FP) PO SCH (21:34)
[2017-09-04] MEDS: IBUPROFEN 400 MG TABLET (FP) PO PRN (21:34)
[2017-09-04] MEDS: MIRTAZAPINE 15 MG TABLET (FP) PO SCH (21:34)
[2017-09-05] MEDS: PRENATAL VITAMINS W/ FOLIC ACID TABLET (FP) PO SCH (09:06)
[2017-09-05] MEDS: NICOTINE 14 MG/24 HOURS TOPICAL PATCH TD SCH (09:06)
[2017-09-05] MEDS: NICOTINE POLACRILEX 2 MG GUM BUC PRN ×3 (09:06→15:11)
[2017-09-05] MEDS: BENZTROPINE MESYLATE 1 MG TABLET (FP) PO SCH (09:07)
[2017-09-05] MEDS: HALOPERIDOL 5 MG TABLET (FP) PO SCH (09:08)
[2017-09-05] MEDS: IBUPROFEN 400 MG TABLET (FP) PO PRN (11:40)
[2017-09-05] MEDS: ACETAMINOPHEN 325 MG TABLET (FP) PO PRN ×2 (13:34→19:57)
[2017-09-05] MEDS ORDERED: GABAPENTIN 300 MG CAPSULE (FP) PO SCH (15:15)
[2017-09-05] MEDS ORDERED: SUMAtriptan SUCCINATE 50 MG TABLET PO ONE (17:15)
[2017-09-05] MEDS: THIAMINE HCL 100 MG TABLET (FP) PO SCH (21:25)
[2017-09-05] MEDS: traZODone HCL 100 MG TABLET (FP) PO SCH (21:25)
[2017-09-05] MEDS: MIRTAZAPINE 15 MG TABLET (FP) PO SCH (21:26)
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
[2017-09-06] MEDS: NICOTINE POLACRILEX 2 MG GUM BUC PRN ×3 (08:17→14:16)
[2017-09-06] MEDS: PRENATAL VITAMINS W/ FOLIC ACID TABLET (FP) PO SCH (10:45)
[2017-09-06] MEDS: NICOTINE 14 MG/24 HOURS TOPICAL PATCH TD SCH (10:45)
[2017-09-06] MEDS: ACETAMINOPHEN 325 MG TABLET (FP) PO PRN ×2 (14:13→18:20)
[2017-09-06] MEDS ORDERED: SUMAtriptan SUCCINATE 50 MG TABLET PO PRN (14:45)
--- NOTE | 2017-09-06 15:20 | PN ---
S Progress Note (SOAP) Subjective: c/o migraine wants higher dose of nicotine gum and patch Objective: 09/06/17 15:19 Vital Signs - 24 hr 09/06/17 09/06/17 09/06/17 00:30 03:30 07:09 Temperature 97.2 F L Pulse Rate 78 Respiratory 20 18 18 Rate Blood Pressure 102/56 labs reveiwed Assessment: 09/06/17 15:19 nicotein gum 4mg, 21mg path, restart [id number] tititrate slowly to 800mg tid, sumaptriptan rn 1x daily.
[2017-09-06] MEDS: NICOTINE 21 MG/24 HOURS TOPICAL PATCH TD SCH (15:48)
[2017-09-06] MEDS: SUMAtriptan SUCCINATE 50 MG TABLET PO PRN (15:48)
[2017-09-06] MEDS: NICOTINE POLACRILEX 4 MG GUM BUC PRN (20:33)
[2017-09-06] MEDS: THIAMINE HCL 100 MG TABLET (FP) PO SCH (21:24)
[2017-09-06] MEDS: GABAPENTIN 100 MG CAPSULE (FP) PO SCH (21:24)
[2017-09-06] MEDS: traZODone HCL 100 MG TABLET (FP) PO SCH (21:24)
[2017-09-06] MEDS: SUVOREXANT 10 MG TABLET PO PRN (21:24)
[2017-09-06] MEDS: MIRTAZAPINE 15 MG TABLET (FP) PO SCH (21:25)
[2017-09-06] MEDS: NAPROXEN 500 MG TABLET (FP) PO SCH (21:25)
[2017-09-07] MEDS: NICOTINE POLACRILEX 4 MG GUM BUC PRN ×5 (06:26→21:48)
[2017-09-07] MEDS: GABAPENTIN 100 MG CAPSULE (FP) PO SCH ×3 (06:26→21:48)
[2017-09-07] MEDS: PRENATAL VITAMINS W/ FOLIC ACID TABLET (FP) PO SCH (10:04)
[2017-09-07] MEDS: NAPROXEN 500 MG TABLET (FP) PO SCH ×2 (10:04→21:48)
[2017-09-07] MEDS: NICOTINE 21 MG/24 HOURS TOPICAL PATCH TD SCH (10:05)
[2017-09-07] MEDS: SUMAtriptan SUCCINATE 50 MG TABLET PO PRN (12:08)
[2017-09-07] MEDS: ACETAMINOPHEN 325 MG TABLET (FP) PO PRN ×2 (12:08→20:28)
[2017-09-07] MEDS: traZODone HCL 100 MG TABLET (FP) PO SCH (21:48)
[2017-09-07] MEDS: THIAMINE HCL 100 MG TABLET (FP) PO SCH (21:48)
[2017-09-07] MEDS: SUVOREXANT 10 MG TABLET PO PRN (21:48)
[2017-09-07] MEDS: MIRTAZAPINE 15 MG TABLET (FP) PO SCH (21:49)
[2017-09-08] MEDS: GABAPENTIN 100 MG CAPSULE (FP) PO SCH ×3 (06:36→21:05)
[2017-09-08] MEDS: NICOTINE POLACRILEX 4 MG GUM BUC PRN ×4 (06:36→18:54)
[2017-09-08] MEDS: NAPROXEN 500 MG TABLET (FP) PO SCH ×2 (10:06→21:05)
[2017-09-08] MEDS: PRENATAL VITAMINS W/ FOLIC ACID TABLET (FP) PO SCH (10:06)
[2017-09-08] MEDS: NICOTINE 21 MG/24 HOURS TOPICAL PATCH TD SCH (10:06)
[2017-09-08] MEDS ORDERED: SUVOREXANT 10 MG TABLET PO PRN (12:10)
--- NOTE | 2017-09-08 12:13 | PN ---
Psychiatric Progress Note Vital Signs: Vital Signs Period Temp Pulse Resp BP Sys/Tello Pulse Ox Last 24 Hr 98.1 F 52 16-20 107/59 Date of Session: 09/08/17 Chief Complaint:: Insomnia HPI: Patient addressing Alcohol, Opoid and Cocaine Dependence comorbid with Nicotine Dependence, Bipolar Disorder, manic, Substance-induced Mood Disorder and Substance-induced Sleep Disorder ROS: PPD+ Current Medications: Active Medications Generic Name Dose Route Start Last Admin Trade Name Freq PRN Reason Stop Dose Admin Acetaminophen 650 mg 09/03/17 16:15 09/07/17 20:28 Tylenol - PO 650 mg Q4H PRN Administration FEVER Al Hydroxide/Mg Hydroxide 30 ml 09/03/17 16:15 Mylanta Oral Suspension - PO Q6H PRN DYSPEPSIA Eucalyptus/Menthol/Phenol/Sorbitol 1 each 09/03/17 16:15 Cepastat Lozenge - MM Q4H PRN SORE THROAT Gabapentin 300 mg 09/06/17 22:00 09/08/17 06:36 Neurontin - PO 300 mg TID CARLEY Administration Guaifenesin 10 ml 09/03/17 16:15 Robitussin Dm - PO Q6H PRN COUGH Hydroxyzine Pamoate 50 mg 09/03/17 16:15 Vistaril - PO Q4H PRN AGITATION Loperamide HCl 4 mg 09/03/17 16:15 Imodium - PO Q6H PRN DIARRHEA Magnesium Citrate 300 ml 09/03/17 16:15 Citroma - PO Q48H PRN CONSTIPATION Magnesium Hydroxide 30 ml 09/03/17 16:15 Milk Of Magnesia - PO DAILY PRN CONSTIPATION Mirtazapine 7.5 mg 09/03/17 22:00 09/07/17 21:49 Remeron - PO 7.5 mg HS CARLEY Administration Naproxen 500 mg 09/06/17 22:00 09/08/17 10:06 Naprosyn - PO 500 mg BID CARLEY Administration Nicotine 21 mg 09/06/17 15:30 09/08/17 10:06 Nicoderm Patch - TD 21 mg DAILY CARLEY Administration Nicotine Polacrilex 4 mg 09/06/17 15:16 09/08/17 10:07 Nicorette Gum - BUC 4 mg Q2H PRN Administration NICOTINE REPLACEMENT RX Multivit/Folic Acid/Iron 1 tab 09/04/17 10:00 09/08/17 10:06 Vitamins (Sjr) - PO 1 tab DAILY CARLEY Administration Pseudoephedrine/Triprolidine 1 combo 09/03/17 16:15 Actifed - PO TID PRN NASAL CONGESTION Sumatriptan Succinate 50 mg 09/06/17 15:17 09/07/17 12:08 Imitrex - PO 50 mg DAILY PRN Administration HEADACHE Thiamine HCl 100 mg 09/03/17 22:00 09/07/17 21:48 Vitamin B1 - PO 100 mg HS CARLEY Administration Trazodone HCl 200 mg 09/03/17 22:00 09/07/17 21:48 Desyrel - PO 200 mg HS CARLEY Administration Medication(s) Change(s): Increase Belsomra dosage to 15 mg po HS prn for insomnia Current Side Effect: No Lab tests ordered: Yes Lab tests reviewed: Yes Provider note:: Patient reports experiencing difficulty to sleep. 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 Trazadone 20 mg po HS and Belsomra 10 mg po HS prn. Requests that belsomra dosage be increased. Total face to face time:: 15 Mental Status Exam - Mental Status Exam Alert and Oriented to: Time, Place, Person Cognitive Function: Fair Patient Appearance: Well Groomed Mood: Hopeful, Euthymic Affect: Appropriate Patient Behavior: Cooperative Speech Pattern: Clear Voice Loudness: Normal Thought Process: Intact, Goal Oriented Thought Disorder: Not Present Hallucinations: Denies Suicidal Ideation: Denies Homicidal Ideation: Denies Insight/Judgement: Fair Sleep: Poorly Appetite: Good Muscle strength/Tone: Normal Gait/Station: Normal Psychiatric Treatment Plan - Problem List (1) Alcohol dependence Current Visit: Yes (2) Opioid dependence Current Visit: Yes (3) Cocaine dependence Current Visit: Yes (4) Nicotine dependence Current Visit: No Qualifiers: Nicotine product type: cigarettes Substance use status: uncomplicated Qualified Code(s): F17.210 - Nicotine dependence, cigarettes, uncomplicated (5) Bipolar disorder, manic Current Visit: Yes (6) Alcohol-induced mood disorder Current Visit: Yes (7) Alcohol-induced sleep disorder Current Visit: Yes (8) Nicotine dependence Current Visit: Yes (9) History of positive PPD Current Visit: No Initial treatment plan: 1) Discontinue Belsomra 10 mg po HS prn. 2) Start Belsomra 15 mg po HS prn for insomnia. 3) Monitor progress
[2017-09-08] MEDS: ACETAMINOPHEN 325 MG TABLET (FP) PO PRN ×2 (12:34→18:53)
[2017-09-08] MEDS ORDERED: SUVOREXANT 10 MG TABLET PO ONE (21:03)
[2017-09-08] MEDS ORDERED: SUVOREXANT 5 MG TABLET ONE (21:03)
[2017-09-08] MEDS: THIAMINE HCL 100 MG TABLET (FP) PO SCH (21:04)
[2017-09-08] MEDS: traZODone HCL 100 MG TABLET (FP) PO SCH (21:04)
[2017-09-08] MEDS: SUMAtriptan SUCCINATE 50 MG TABLET PO PRN (21:04)
[2017-09-08] MEDS: MIRTAZAPINE 15 MG TABLET (FP) PO SCH (21:04)
[2017-09-08] MEDS: SUVOREXANT 10 MG, SUVOREXANT 5 MG PO PRN (21:06)
[2017-09-09] MEDS: GABAPENTIN 100 MG CAPSULE (FP) PO SCH (06:38)
[2017-09-09] MEDS: PRENATAL VITAMINS W/ FOLIC ACID TABLET (FP) PO SCH (09:35)
[2017-09-09] MEDS: NAPROXEN 500 MG TABLET (FP) PO SCH ×2 (09:35→21:08)
[2017-09-09] MEDS: NICOTINE 21 MG/24 HOURS TOPICAL PATCH TD SCH (09:35)
[2017-09-09] MEDS: NICOTINE POLACRILEX 4 MG GUM BUC PRN ×4 (09:37→20:15)
--- NOTE | 2017-09-09 13:15 | PN ---
S Progress Note (SOAP) Subjective: Frequent migraine headaches and request to change Neurontin BID instead of TID and dosage increase Objective: 09/09/17 13:14 AOx3 self directing, ambulating, no signs and symptoms of distress,no neurological deficits present Assessment: 09/09/17 13:17 migraines and chronic pain Plan: Increase fluids Rest Neurontin increase 400mg BID
[2017-09-09] MEDS: ACETAMINOPHEN 325 MG TABLET (FP) PO PRN (20:16)
[2017-09-09] MEDS: SUVOREXANT 10 MG, SUVOREXANT 5 MG PO PRN (21:07)
[2017-09-09] MEDS ORDERED: SUVOREXANT 5 MG TABLET ONE (21:07)
[2017-09-09] MEDS: GABAPENTIN 400 MG CAPSULE (FP) PO SCH (21:08)
[2017-09-09] MEDS: traZODone HCL 100 MG TABLET (FP) PO SCH (21:08)
[2017-09-09] MEDS: SUMAtriptan SUCCINATE 50 MG TABLET PO PRN (21:08)
[2017-09-09] MEDS ORDERED: SUVOREXANT 10 MG TABLET PO ONE (21:08)
[2017-09-09] MEDS: THIAMINE HCL 100 MG TABLET (FP) PO SCH (21:09)
[2017-09-09] MEDS: MIRTAZAPINE 15 MG TABLET (FP) PO SCH (21:09)
[2017-09-10] MEDS: NICOTINE POLACRILEX 4 MG GUM BUC PRN ×3 (08:00→21:17)
[2017-09-10] MEDS: NAPROXEN 500 MG TABLET (FP) PO SCH ×2 (10:11→21:14)
[2017-09-10] MEDS: NICOTINE 21 MG/24 HOURS TOPICAL PATCH TD SCH (10:11)
[2017-09-10] MEDS: GABAPENTIN 400 MG CAPSULE (FP) PO SCH ×2 (10:11→21:14)
[2017-09-10] MEDS: PRENATAL VITAMINS W/ FOLIC ACID TABLET (FP) PO SCH (10:11)
[2017-09-10] MEDS: SUMAtriptan SUCCINATE 50 MG TABLET PO PRN (16:05)
[2017-09-10] MEDS: MIRTAZAPINE 15 MG TABLET (FP) PO SCH (21:14)
[2017-09-10] MEDS: traZODone HCL 100 MG TABLET (FP) PO SCH (21:14)
[2017-09-10] MEDS: THIAMINE HCL 100 MG TABLET (FP) PO SCH (21:14)
[2017-09-10] MEDS: SUVOREXANT 10 MG, SUVOREXANT 5 MG PO PRN (21:15)
[2017-09-10] MEDS ORDERED: SUVOREXANT 5 MG TABLET ONE (21:15)
[2017-09-10] MEDS ORDERED: SUVOREXANT 10 MG TABLET PO ONE (21:15)
[2017-09-10] MEDS: ACETAMINOPHEN 325 MG TABLET (FP) PO PRN (22:37)
[2017-09-11] MEDS: GABAPENTIN 400 MG CAPSULE (FP) PO SCH ×2 (10:14→21:46)
[2017-09-11] MEDS: NAPROXEN 500 MG TABLET (FP) PO SCH ×2 (10:14→21:45)
[2017-09-11] MEDS: NICOTINE 21 MG/24 HOURS TOPICAL PATCH TD SCH (10:14)
[2017-09-11] MEDS: PRENATAL VITAMINS W/ FOLIC ACID TABLET (FP) PO SCH (10:15)
[2017-09-11] MEDS: NICOTINE POLACRILEX 4 MG GUM BUC PRN ×5 (10:15→21:47)
[2017-09-11] MEDS: ACETAMINOPHEN 325 MG TABLET (FP) PO PRN (19:51)
[2017-09-11] MEDS: traZODone HCL 100 MG TABLET (FP) PO SCH (21:45)
[2017-09-11] MEDS: SUVOREXANT 10 MG TABLET PO PRN (21:45)
[2017-09-11] MEDS: THIAMINE HCL 100 MG TABLET (FP) PO SCH (21:45)
[2017-09-11] MEDS: MIRTAZAPINE 15 MG TABLET (FP) PO SCH (21:47)
[2017-09-12] MEDS: NICOTINE POLACRILEX 4 MG GUM BUC PRN ×5 (08:03→21:04)
[2017-09-12] MEDS: PRENATAL VITAMINS W/ FOLIC ACID TABLET (FP) PO SCH (10:13)
[2017-09-12] MEDS: NICOTINE 21 MG/24 HOURS TOPICAL PATCH TD SCH (10:13)
[2017-09-12] MEDS: NAPROXEN 500 MG TABLET (FP) PO SCH ×2 (10:13→21:03)
[2017-09-12] MEDS: GABAPENTIN 400 MG CAPSULE (FP) PO SCH ×2 (10:13→21:03)
[2017-09-12] MEDS: traZODone HCL 100 MG TABLET (FP) PO SCH (21:03)
[2017-09-12] MEDS: SUVOREXANT 10 MG TABLET PO PRN (21:03)
[2017-09-12] MEDS: THIAMINE HCL 100 MG TABLET (FP) PO SCH (21:03)
[2017-09-12] MEDS: MIRTAZAPINE 15 MG TABLET (FP) PO SCH (22:00)
[2017-09-13] MEDS: GABAPENTIN 400 MG CAPSULE (FP) PO SCH ×2 (10:02→21:07)
[2017-09-13] MEDS: NICOTINE 21 MG/24 HOURS TOPICAL PATCH TD SCH (10:02)
[2017-09-13] MEDS: PRENATAL VITAMINS W/ FOLIC ACID TABLET (FP) PO SCH (10:02)
[2017-09-13] MEDS: NAPROXEN 500 MG TABLET (FP) PO SCH ×2 (10:02→21:08)
[2017-09-13] MEDS: NICOTINE POLACRILEX 4 MG GUM BUC PRN ×5 (10:04→21:09)
[2017-09-13] MEDS: P-EPHED 60MG/TRIPROLIDI 2.5MG TABLET PO PRN (12:25)
[2017-09-13] MEDS: ACETAMINOPHEN 325 MG TABLET (FP) PO PRN (15:37)
[2017-09-13] MEDS ORDERED: LIDOCAINE VISCOUS 2% ORAL/TOP 20 ML UNIT-DOSE CUP MM PRN (15:47)
--- NOTE | 2017-09-13 15:51 | PN ---
[facility] Progress Note Note: pt c/o of throat discomfort. increase neurontin for c/o pins/needles to legs, constipation. neurontin 800mg tid ordered throat assess; redness noted; z-pack 500mg x 4 days ordered neurontin 800mg tid ordered request for throat lozenges prn lidocaine s/s prn
[2017-09-13] MEDS: AZITHROMYCIN 250 MG TABLET PO SCH (16:06)
[2017-09-13] MEDS: THIAMINE HCL 100 MG TABLET (FP) PO SCH (21:07)
[2017-09-13] MEDS: SUVOREXANT 10 MG TABLET PO PRN (21:08)
[2017-09-13] MEDS: traZODone HCL 100 MG TABLET (FP) PO SCH (21:08)
[2017-09-13] MEDS: DOCUSATE SODIUM 100 MG CAPSULE (FP) PO SCH (21:08)
[2017-09-13] MEDS: MIRTAZAPINE 15 MG TABLET (FP) PO SCH (21:09)
[2017-09-14] MEDS: GABAPENTIN 400 MG CAPSULE (FP) PO SCH ×3 (06:31→21:09)
[2017-09-14] MEDS: NICOTINE POLACRILEX 4 MG GUM BUC PRN ×5 (08:01→20:05)
[2017-09-14] MEDS: AZITHROMYCIN 250 MG TABLET PO SCH (10:12)
[2017-09-14] MEDS: PRENATAL VITAMINS W/ FOLIC ACID TABLET (FP) PO SCH (10:12)
[2017-09-14] MEDS: DOCUSATE SODIUM 100 MG CAPSULE (FP) PO SCH ×2 (10:13→21:09)
[2017-09-14] MEDS: NAPROXEN 500 MG TABLET (FP) PO SCH ×2 (10:14→21:09)
[2017-09-14] MEDS: NICOTINE 21 MG/24 HOURS TOPICAL PATCH TD SCH (10:15)
[2017-09-14] MEDS: ACETAMINOPHEN 325 MG TABLET (FP) PO PRN (10:24)
--- NOTE | 2017-09-14 15:13 | PN ---
[facility] Progress Note (SOAP) Subjective: c/o inury to nail now bleeding happned in 2010 painful Objective: 09/14/17 15:12 Vital Signs - 24 hr 09/14/17 09/14/17 09/14/17 00:30 03:27 06:46 Temperature 98.3 F Pulse Rate 74 Respiratory 16 16 18 Rate Blood Pressure 115/63 labs reveiwed, nail bed destroyed, driedlback bllod around toe, no eryhema or infection slightly tender Assessment: 09/14/17 15:13 clean, wet to dry dressing, bacitracin daily and bandaid, advil for pain.
[2017-09-14] MEDS: BACITRACIN 0.9 GM PACKET TP SCH (16:06)
[2017-09-14] MEDS: MIRTAZAPINE 15 MG TABLET (FP) PO SCH (21:09)
[2017-09-14] MEDS: THIAMINE HCL 100 MG TABLET (FP) PO SCH (21:09)
[2017-09-14] MEDS: traZODone HCL 100 MG TABLET (FP) PO SCH (21:09)
[2017-09-14] MEDS: SUVOREXANT 10 MG TABLET PO PRN (21:11)
[2017-09-15] MEDS: GABAPENTIN 400 MG CAPSULE (FP) PO SCH ×3 (06:00→21:43)
[2017-09-15] MEDS: NICOTINE POLACRILEX 4 MG GUM BUC PRN ×5 (07:54→21:44)
[2017-09-15] MEDS: AZITHROMYCIN 250 MG TABLET PO SCH (10:01)
[2017-09-15] MEDS: NAPROXEN 500 MG TABLET (FP) PO SCH ×2 (10:01→21:43)
[2017-09-15] MEDS: PRENATAL VITAMINS W/ FOLIC ACID TABLET (FP) PO SCH (10:01)
[2017-09-15] MEDS: DOCUSATE SODIUM 100 MG CAPSULE (FP) PO SCH ×2 (10:01→21:44)
[2017-09-15] MEDS: NICOTINE 21 MG/24 HOURS TOPICAL PATCH TD SCH (10:01)
[2017-09-15] MEDS: BACITRACIN 0.9 GM PACKET TP SCH (10:01)
[2017-09-15] MEDS: traZODone HCL 100 MG TABLET (FP) PO SCH (21:43)
[2017-09-15] MEDS: THIAMINE HCL 100 MG TABLET (FP) PO SCH (21:43)
[2017-09-15] MEDS: SUVOREXANT 10 MG TABLET PO PRN (21:43)
[2017-09-15] MEDS: MIRTAZAPINE 15 MG TABLET (FP) PO SCH (21:44)
[2017-09-16] MEDS: GABAPENTIN 400 MG CAPSULE (FP) PO SCH ×3 (06:00→21:03)
[2017-09-16] MEDS: NICOTINE POLACRILEX 4 MG GUM BUC PRN ×5 (08:00→20:02)
[2017-09-16] MEDS: AZITHROMYCIN 250 MG TABLET PO SCH (10:04)
[2017-09-16] MEDS: DOCUSATE SODIUM 100 MG CAPSULE (FP) PO SCH ×2 (10:05→21:04)
[2017-09-16] MEDS: NAPROXEN 500 MG TABLET (FP) PO SCH ×2 (10:05→21:03)
[2017-09-16] MEDS: BACITRACIN 0.9 GM PACKET TP SCH (10:05)
[2017-09-16] MEDS: PRENATAL VITAMINS W/ FOLIC ACID TABLET (FP) PO SCH (10:05)
[2017-09-16] MEDS: NICOTINE 21 MG/24 HOURS TOPICAL PATCH TD SCH (10:05)
[2017-09-16] MEDS: P-EPHED 60MG/TRIPROLIDI 2.5MG TABLET PO PRN (12:26)
[2017-09-16] MEDS: THIAMINE HCL 100 MG TABLET (FP) PO SCH (21:02)
[2017-09-16] MEDS: MIRTAZAPINE 15 MG TABLET (FP) PO SCH (21:03)
[2017-09-16] MEDS: traZODone HCL 100 MG TABLET (FP) PO SCH (21:03)
[2017-09-16] MEDS: SUVOREXANT 10 MG TABLET PO PRN (21:06)
[2017-09-17] MEDS: GABAPENTIN 400 MG CAPSULE (FP) PO SCH ×3 (05:57→21:08)
[2017-09-17] MEDS: NICOTINE POLACRILEX 4 MG GUM BUC PRN ×6 (07:53→21:11)
[2017-09-17] MEDS: NICOTINE 21 MG/24 HOURS TOPICAL PATCH TD SCH (10:12)
[2017-09-17] MEDS: PRENATAL VITAMINS W/ FOLIC ACID TABLET (FP) PO SCH (10:12)
[2017-09-17] MEDS: BACITRACIN 0.9 GM PACKET TP SCH (10:12)
[2017-09-17] MEDS: NAPROXEN 500 MG TABLET (FP) PO SCH ×2 (10:12→21:08)
[2017-09-17] MEDS: AZITHROMYCIN 250 MG TABLET PO SCH (10:12)
[2017-09-17] MEDS: DOCUSATE SODIUM 100 MG CAPSULE (FP) PO SCH ×2 (10:13→21:08)
[2017-09-17] MEDS ORDERED: SUVOREXANT 10 MG TABLET PO PRN ×2 (12:07→22:00)
[2017-09-17] MEDS: ACETAMINOPHEN 325 MG TABLET (FP) PO PRN (17:35)
[2017-09-17] MEDS ORDERED: SUVOREXANT 5 MG TABLET ONE (20:33)
[2017-09-17] MEDS ORDERED: SUVOREXANT 10 MG TABLET PO ONE (20:34)
[2017-09-17] MEDS: THIAMINE HCL 100 MG TABLET (FP) PO SCH (21:08)
[2017-09-17] MEDS: traZODone HCL 100 MG TABLET (FP) PO SCH (21:08)
[2017-09-17] MEDS: MIRTAZAPINE 15 MG TABLET (FP) PO SCH (21:10)
[2017-09-18] MEDS: GABAPENTIN 400 MG CAPSULE (FP) PO SCH ×3 (06:16→21:06)
[2017-09-18] MEDS: NICOTINE POLACRILEX 4 MG GUM BUC PRN ×5 (06:17→20:02)
[2017-09-18] MEDS: PRENATAL VITAMINS W/ FOLIC ACID TABLET (FP) PO SCH (10:17)
[2017-09-18] MEDS: DOCUSATE SODIUM 100 MG CAPSULE (FP) PO SCH ×2 (10:17→21:06)
[2017-09-18] MEDS: NAPROXEN 500 MG TABLET (FP) PO SCH ×2 (10:17→21:05)
[2017-09-18] MEDS: NICOTINE 21 MG/24 HOURS TOPICAL PATCH TD SCH (10:18)
[2017-09-18] MEDS: BACITRACIN 0.9 GM PACKET TP SCH (10:18)
[2017-09-18] MEDS: THIAMINE HCL 100 MG TABLET (FP) PO SCH (21:05)
[2017-09-18] MEDS: MIRTAZAPINE 15 MG TABLET (FP) PO SCH (21:06)
[2017-09-18] MEDS: traZODone HCL 100 MG TABLET (FP) PO SCH (21:06)
[2017-09-18] MEDS: SUVOREXANT 10 MG, SUVOREXANT 5 MG PO PRN (21:07)
[2017-09-18] MEDS ORDERED: SUVOREXANT 5 MG TABLET ONE (21:08)
[2017-09-18] MEDS ORDERED: SUVOREXANT 10 MG TABLET PO ONE (21:09)
[2017-09-19] MEDS: GABAPENTIN 400 MG CAPSULE (FP) PO SCH ×3 (06:15→21:06)
[2017-09-19] MEDS: NICOTINE POLACRILEX 4 MG GUM BUC PRN ×4 (08:22→17:18)
[2017-09-19] MEDS: DOCUSATE SODIUM 100 MG CAPSULE (FP) PO SCH ×2 (10:08→21:08)
[2017-09-19] MEDS: NAPROXEN 500 MG TABLET (FP) PO SCH ×2 (10:08→21:07)
[2017-09-19] MEDS: NICOTINE 21 MG/24 HOURS TOPICAL PATCH TD SCH (10:08)
[2017-09-19] MEDS: PRENATAL VITAMINS W/ FOLIC ACID TABLET (FP) PO SCH (10:08)
[2017-09-19] MEDS: BACITRACIN 0.9 GM PACKET TP SCH (10:08)
[2017-09-19] MEDS: MIRTAZAPINE 15 MG TABLET (FP) PO SCH (21:07)
[2017-09-19] MEDS: traZODone HCL 100 MG TABLET (FP) PO SCH (21:07)
[2017-09-19] MEDS: THIAMINE HCL 100 MG TABLET (FP) PO SCH (21:08)
[2017-09-19] MEDS ORDERED: SUVOREXANT 5 MG TABLET ONE (21:09)
[2017-09-19] MEDS ORDERED: SUVOREXANT 10 MG TABLET PO ONE (21:10)
[2017-09-19] MEDS: SUVOREXANT 10 MG, SUVOREXANT 5 MG PO PRN (21:11)
[2017-09-20] MEDS: GABAPENTIN 400 MG CAPSULE (FP) PO SCH ×3 (06:26→21:16)
[2017-09-20] MEDS: NICOTINE POLACRILEX 4 MG GUM BUC PRN ×5 (06:27→17:30)
[2017-09-20] MEDS: NAPROXEN 500 MG TABLET (FP) PO SCH ×2 (10:19→21:16)
[2017-09-20] MEDS: BACITRACIN 0.9 GM PACKET TP SCH (10:19)
[2017-09-20] MEDS: PRENATAL VITAMINS W/ FOLIC ACID TABLET (FP) PO SCH (10:19)
[2017-09-20] MEDS: NICOTINE 21 MG/24 HOURS TOPICAL PATCH TD SCH (10:19)
[2017-09-20] MEDS: DOCUSATE SODIUM 100 MG CAPSULE (FP) PO SCH ×2 (10:21→21:17)
[2017-09-20] MEDS: ACETAMINOPHEN 325 MG TABLET (FP) PO PRN (13:52)
--- NOTE | 2017-09-20 14:25 | PN ---
S Progress Note Note: Patient requesting Belsomra 15mg PO HS PRN to be reordered. Verbal consent given. Belsomra reordered for 3 days for insomnia.
[2017-09-20] MEDS ORDERED: SUVOREXANT 5 MG TABLET ONE (21:15)
[2017-09-20] MEDS ORDERED: SUVOREXANT 10 MG TABLET PO ONE (21:15)
[2017-09-20] MEDS: THIAMINE HCL 100 MG TABLET (FP) PO SCH (21:16)
[2017-09-20] MEDS: traZODone HCL 100 MG TABLET (FP) PO SCH (21:16)
[2017-09-20] MEDS: MIRTAZAPINE 15 MG TABLET (FP) PO SCH (21:17)
[2017-09-20] MEDS: SUVOREXANT 5 MG, SUVOREXANT 10 MG PO PRN (22:00)
[2017-09-20] MEDS ORDERED: SUVOREXANT 5 MG TABLET PO PRN (22:00)
[2017-09-21] MEDS: NICOTINE POLACRILEX 4 MG GUM BUC PRN ×4 (05:52→17:02)
[2017-09-21] MEDS: GABAPENTIN 400 MG CAPSULE (FP) PO SCH ×3 (05:52→21:48)
[2017-09-21] MEDS: NICOTINE 21 MG/24 HOURS TOPICAL PATCH TD SCH (10:10)
[2017-09-21] MEDS: BACITRACIN 0.9 GM PACKET TP SCH (10:11)
[2017-09-21] MEDS: PRENATAL VITAMINS W/ FOLIC ACID TABLET (FP) PO SCH (10:11)
[2017-09-21] MEDS: NAPROXEN 500 MG TABLET (FP) PO SCH ×2 (10:11→21:49)
[2017-09-21] MEDS: DOCUSATE SODIUM 100 MG CAPSULE (FP) PO SCH ×2 (10:12→21:50)
[2017-09-21] MEDS ORDERED: SUVOREXANT 5 MG TABLET ONE (20:57)
[2017-09-21] MEDS ORDERED: SUVOREXANT 10 MG TABLET PO ONE (20:57)
[2017-09-21] MEDS: THIAMINE HCL 100 MG TABLET (FP) PO SCH (21:48)
[2017-09-21] MEDS: traZODone HCL 100 MG TABLET (FP) PO SCH (21:48)
[2017-09-21] MEDS: MIRTAZAPINE 15 MG TABLET (FP) PO SCH (21:49)
[2017-09-21] MEDS: SUVOREXANT 5 MG, SUVOREXANT 10 MG PO PRN (21:50)
[2017-09-22] MEDS: GABAPENTIN 400 MG CAPSULE (FP) PO SCH ×3 (06:40→21:33)
[2017-09-22] MEDS: NICOTINE POLACRILEX 4 MG GUM BUC PRN ×6 (08:01→20:38)
[2017-09-22] MEDS: NICOTINE 21 MG/24 HOURS TOPICAL PATCH TD SCH (10:02)
[2017-09-22] MEDS: NAPROXEN 500 MG TABLET (FP) PO SCH ×2 (10:02→21:33)
[2017-09-22] MEDS: PRENATAL VITAMINS W/ FOLIC ACID TABLET (FP) PO SCH (10:03)
[2017-09-22] MEDS: BACITRACIN 0.9 GM PACKET TP SCH (10:35)
[2017-09-22] MEDS: DOCUSATE SODIUM 100 MG CAPSULE (FP) PO SCH ×2 (10:35→21:34)
[2017-09-22] MEDS ORDERED: SUVOREXANT 5 MG TABLET ONE (19:33)
[2017-09-22] MEDS ORDERED: SUVOREXANT 10 MG TABLET PO ONE (19:34)
[2017-09-22] MEDS: SUVOREXANT 5 MG, SUVOREXANT 10 MG PO PRN (21:32)
[2017-09-22] MEDS: traZODone HCL 100 MG TABLET (FP) PO SCH (21:33)
[2017-09-22] MEDS: MIRTAZAPINE 15 MG TABLET (FP) PO SCH (21:34)
[2017-09-22] MEDS: THIAMINE HCL 100 MG TABLET (FP) PO SCH (21:34)
[2017-09-23] MEDS: GABAPENTIN 400 MG CAPSULE (FP) PO SCH ×3 (06:13→21:15)
[2017-09-23 06:56] VITALS: PULSE 74
[2017-09-23] MEDS: NICOTINE POLACRILEX 4 MG GUM BUC PRN ×5 (07:59→20:12)
[2017-09-23] MEDS: NICOTINE 21 MG/24 HOURS TOPICAL PATCH TD SCH (10:23)
[2017-09-23] MEDS: DOCUSATE SODIUM 100 MG CAPSULE (FP) PO SCH ×2 (10:23→21:18)
[2017-09-23] MEDS: NAPROXEN 500 MG TABLET (FP) PO SCH ×2 (10:23→21:16)
[2017-09-23] MEDS: PRENATAL VITAMINS W/ FOLIC ACID TABLET (FP) PO SCH (10:23)
[2017-09-23] MEDS: BACITRACIN 0.9 GM PACKET TP SCH (10:23)
--- NOTE | 2017-09-23 12:13 | PN ---
Psychiatric Progress Note Vital Signs: Vital Signs Period Temp Pulse Resp BP Sys/Tello Pulse Ox Last 24 Hr 97.4 F 74 16-20 123/61 Date of Session: 09/23/17 Chief Complaint:: "Discharge" HPI: Pt. admitted [facility] for opiate dependence. ROS: Unremarkable. Current Medications: Active Medications Generic Name Dose Route Start Last Admin Trade Name Freq PRN Reason Stop Dose Admin Acetaminophen 650 mg 09/03/17 16:15 09/20/17 13:52 Tylenol - PO 650 mg Q4H PRN Administration FEVER Al Hydroxide/Mg Hydroxide 30 ml 09/03/17 16:15 Mylanta Oral Suspension - PO Q6H PRN DYSPEPSIA Bacitracin 0.9 gm 09/14/17 15:15 09/23/17 10:23 Bacitracin - TP Not Given DAILY [facility] Docusate Sodium 100 mg 09/13/17 22:00 09/23/17 10:23 Colace - PO Not Given BID [facility] Eucalyptus/Menthol/Phenol/Sorbitol 1 each 09/03/17 16:15 09/13/17 12:26 Cepastat Lozenge - MM 1 each Q4H PRN Administration SORE THROAT Gabapentin 800 mg 09/13/17 22:00 09/23/17 06:13 Neurontin - PO Not Given TID [facility] Guaifenesin 10 ml 09/03/17 16:15 Robitussin Dm - PO Q6H PRN COUGH Hydroxyzine Pamoate 50 mg 09/03/17 16:15 Vistaril - PO Q4H PRN AGITATION Lidocaine HCl 20 ml 09/13/17 15:47 Xylocaine 2% Viscous Oral - MM Q6HPO PRN ORAL PAIN/MOUTH SORES Loperamide HCl 4 mg 09/03/17 16:15 Imodium - PO Q6H PRN DIARRHEA Magnesium Citrate 300 ml 09/03/17 16:15 Citroma - PO Q48H PRN CONSTIPATION Magnesium Hydroxide 30 ml 09/03/17 16:15 Milk Of Magnesia - PO DAILY PRN CONSTIPATION Mirtazapine 7.5 mg 09/03/17 22:00 09/22/17 21:34 Remeron - PO 7.5 mg HS CARLEY Administration Naproxen 500 mg 09/06/17 22:00 09/23/17 10:23 Naprosyn - PO 500 mg BID CARLEY Administration Nicotine 21 mg 09/06/17 15:30 09/23/17 10:23 Nicoderm Patch - TD 21 mg DAILY CARLEY Administration Nicotine Polacrilex 4 mg 09/06/17 15:16 09/23/17 10:23 Nicorette Gum - BUC 4 mg Q2H PRN Administration NICOTINE REPLACEMENT RX Multivit/Folic Acid/Iron 1 tab 09/04/17 10:00 09/23/17 10:23 Vitamins (Sjr) - PO 1 tab DAILY CARLEY Administration Pseudoephedrine/Triprolidine 1 combo 09/03/17 16:15 09/16/17 12:26 Actifed - PO 1 combo TID PRN Administration NASAL CONGESTION Sumatriptan Succinate 50 mg 09/06/17 15:17 09/10/17 16:05 Imitrex - PO 50 mg DAILY PRN Administration HEADACHE Thiamine HCl 100 mg 09/03/17 22:00 09/22/17 21:34 Vitamin B1 - PO 100 mg HS CARLEY Administration Trazodone HCl 200 mg 09/03/17 22:00 09/22/17 21:33 Desyrel - PO 200 mg HS CARLEY Administration Medication(s) Change(s): No. Current Side Effect: No Lab tests ordered: No Lab tests reviewed: Yes Provider note:: Patient will complete the Inpatient rehabilitation program on . He has met his treatment goals and will continue to address his issues at the [facility] outpatient program in [place], [place]. Patient is able to understand the consequences of his addiction and the need to make positive changes to his lifestyle in order to maintain abstinence. Pt. responded well to Trazodone 200mg qhs and Mirtzapine 7.5mg. A script for 30 days will be sent electronically to [facility] at [address] [place] [address], [id number]. Pt. is stable for discharge on 09/24/2017. Total face to face time:: 25 Mental Status Exam - Mental Status Exam Alert and Oriented to: Time, Place, Person Cognitive Function: Good Patient Appearance: Well Groomed Mood: Hopeful Affect: Appropriate Patient Behavior: Cooperative Speech Pattern: Clear, Appropriate Voice Loudness: Normal Thought Process: Goal Oriented Thought Disorder: Not Present Hallucinations: Denies Suicidal Ideation: Denies Homicidal Ideation: Denies Insight/Judgement: Poor Sleep: Poorly Appetite: Fair Muscle strength/Tone: Normal Gait/Station: Normal
--- NOTE | 2017-09-23 12:28 | PN ---
[facility] Progress Note (SOAP) Subjective: [place] requesting neurontin for discharge medication as he has pain in legs fro cogentin Objective: 09/23/17 12:27 Vital Signs - 24 hr 09/23/17 09/23/17 09/23/17 00:30 03:30 06:56 Temperature 97.4 F L Pulse Rate 74 Respiratory 16 20 18 Rate Blood Pressure 123/61 labs reviewed Assessment: 09/23/17 12:27 neuropathy - will give one month supply, risks of misuse and sedation discussed with ten will follow up wi PCP on idischarge for pain managemetn.
[2017-09-23] MEDS: MIRTAZAPINE 15 MG TABLET (FP) PO SCH (21:15)
[2017-09-23] MEDS: THIAMINE HCL 100 MG TABLET (FP) PO SCH (21:15)
[2017-09-23] MEDS: traZODone HCL 100 MG TABLET (FP) PO SCH (21:16)
[2017-09-23] MEDS ORDERED: SUVOREXANT 5 MG TABLET PO PRN (22:00)
[2017-09-24] MEDS: NICOTINE POLACRILEX 4 MG GUM BUC PRN (06:38)
[2017-09-24] MEDS: GABAPENTIN 400 MG CAPSULE (FP) PO SCH (06:38)
[2017-09-24 07:08] VITALS: BP 108/62; TEMP 98
== END 2017-09-24 09:20 | disposition home or self-care (01) | DRG 772 ==
LOC: YASAS 14:23 → Y3W 14:24
PROVIDERS: ADMIT Psychiatry & Neurology Psychiatry; ATTEND Psychiatry & Neurology Psychiatry
PROC: HZ42ZZZ Group Counseling for Substance Abuse Treatment, Cognitive-Behavioral (ICD-10-PCS; principal; 2017-09-03)
DX: F11.20 Opioid dependence, uncomplicated (principal); F10.230 Alcohol dependence with withdrawal, uncomplicated; F14.20 Cocaine dependence, uncomplicated; F17.210 Nicotine dependence, cigarettes, uncomplicated; F10.282 Alcohol dependence with alcohol-induced sleep disorder; F10.24 Alcohol dependence with alcohol-induced mood disorder; F31.9 Bipolar disorder, unspecified; R76.11 Nonspecific reaction to tuberculin skin test without active tuberculosis